=== PATIENT | male | born 1980 | race Caucasian/White ===

== ENCOUNTER 2023-09-12 23:33 | Emergency (ER) | payer SELFPAY ==
[~2023-09-12] VITALS: Ht 177.8 cm; Wt 106.6 kg
[2023-09-12 23:33] VITALS: TEMP 98.2
[~2023-09-12 23:33] MED LIST: AMPH30TA3 PO
[2023-09-13] MEDS ORDERED: LIDOCAINE 1%-EPI 1:100,000 20 ML VIAL ONE (00:42)
[2023-09-13] MEDS ORDERED: TDAP [DIPH/PERTUSSIS/TET] 0.5 ML VIAL IM ONE (01:01)
[2023-09-13] MEDS: TDAP [DIPH/PERTUSSIS/TET] 0.5 ML VIAL IM ONE (01:05)
[2023-09-13 03:25] VITALS: BP 126/71; O2SAT 98
== END 2023-09-13 03:28 | disposition home or self-care (01) ==
LOC: ER 23:43
DX: S01.01XA Laceration without foreign body of scalp, initial encounter (principal); W01.0XXA Fall on same level from slipping, tripping and stumbling without subsequent striking against object, initial encounter; Y93.89 Activity, other specified; Y92.89 Other specified places as the place of occurrence of the external cause; Y99.8 Other external cause status
CPT/HCPCS: 12002; 70450; 90471; 90715; 99285; A6403; J3490

== ENCOUNTER 2023-09-23 17:12 | Emergency (ER) | payer MEDICAID ==
[~2023-09-23] VITALS: Ht 175.3 cm; Wt 113.9 kg
[2023-09-23 17:17] VITALS: BP 137/74; TEMP 98.4
[2023-09-23 17:31] VITALS: O2SAT 98
== END 2023-09-23 17:32 | disposition home or self-care (01) ==
LOC: ER 17:16
DX: S01.91XD Laceration without foreign body of unspecified part of head, subsequent encounter (principal); X58.XXXD Exposure to other specified factors, subsequent encounter; Z98.890 Other specified postprocedural states